=== PATIENT | female | born 1990 | race Caucasian/White ===

== ENCOUNTER 2017-07-08 07:01 | Day surgery (SDC) | payer OTHER ==
[~2017-07-08] VITALS: Ht 160 cm; Wt 90.7 kg
[2017-07-08] MEDS ORDERED: PROPOFOL 200MG/ 20ML VIAL (DIPRIVAN) IV ONE (07:27)
[2017-07-08] MEDS ORDERED: SEVOFLURANE 15 MIN GAS INH ONE (07:27)
[2017-07-08] MEDS ORDERED: LR 1,000 ML IV.SOLN IV ONE (07:27)
[2017-07-08] MEDS ORDERED: SILVER NITRATE APPLICATOR 1 STICK STICK..EA. TP ONE (07:27)
[2017-07-08] MEDS ORDERED: MIDAZOLAM HCL 5 MG/5 ML VIAL IVP ONE (07:27)
[2017-07-08] MEDS ORDERED: fentaNYL CITRATE/PF 100 MCG/2 ML AMP IVP ONE (07:27)
[2017-07-08] MEDS ORDERED: NS IRRIG SOLN 1000 ML IR ONE (07:27)
[2017-07-08] MEDS ORDERED: DEXAMETHASONE SOD PHOSPHATE 4 MG/ML VIAL IVP ONE (07:27)
[2017-07-08] MEDS ORDERED: KETOROLAC TROMETHAMINE 30 MG VIAL IVP ONE (07:27)
[2017-07-08] MEDS ORDERED: LR 1,000 ML IV ONE (09:51)
[2017-07-08] MEDS ORDERED: ONDANSETRON HCL 4 MG/2 ML VIAL IVP PRN ×3 (10:00→10:15)
[2017-07-08] MEDS ORDERED: NALOXONE HCL 0.4 MG/ML AMP (NARCAN) IVP PRN (10:00)
[2017-07-08] MEDS ORDERED: NALBUPHINE HCL 10 MG/ML AMP IVP PRN (10:00)
[2017-07-08] MEDS ORDERED: fentaNYL CITRATE/PF 100 MCG/2 ML AMP IVP PRN (10:00)
[2017-07-08] MEDS ORDERED: ePHEDrine sulfate 50 MG/ML VIAL IVP PRN (10:00)
[2017-07-08] MEDS ORDERED: DIPHENHYDRAMINE INJ 50 MG/ML VIAL IVP PRN (10:00)
[2017-07-08] MEDS ORDERED: IBUPROFEN 600 MG TABLET PO PRN (10:15)
[2017-07-08] MEDS ORDERED: PROMETHAZINE HCL 25 MG/ML AMP IM PRN ×2 (10:15)
[2017-07-08] MEDS ORDERED: OXYCODONE/ACETAMINOPHEN 5-325 TABLET PO PRN ×2 (10:15)
[2017-07-08 11:12] VITALS: BP_SYST 116
== END 2017-07-08 11:10 | disposition home or self-care (01) ==
LOC: SDS 07:01 → SMU 07:02 → SDS 11:10
PROVIDERS: ATTEND Obstetrics & Gynecology
DX: T83.32XA Displacement of intrauterine contraceptive device, initial encounter (principal); Z68.41 Body mass index [BMI] 40.0-44.9, adult; Z98.890 Other specified postprocedural states; E66.9 Obesity, unspecified; E66.3 Overweight
CPT/HCPCS: 36415; 58562; 86886; 86900; 86901; J1100; J1885; J2250; J2704; J3010; J7120